=== PATIENT | female | born 1955 | race Caucasian/White ===

== ENCOUNTER 2018-03-06 08:38 | Emergency (ER) | payer BC ==
[2018-03-06 08:51] VITALS: BP 163/73
--- NOTE | 2018-03-06 08:59 | UC ---
Lower Extremity/Ankle HPI - HPI Summary HPI Summary: This patient is a 62 year old F presenting to [facility] [place] with a chief complaint of left foot soreness since 1 week ago. She was in the middle of a pickleball game when she felt like my sock was crunched up under my foot. The patient rates the pain 8/10 in severity. Symptoms aggravated by ambulating. - History of Current Complaint Chief Complaint: UCLowerExtremity Stated Complaint: L FOOT INJURY Time Seen by Provider: 03/06/18 08:54 Hx Obtained From: Patient Onset/Duration: Sudden Onset, Lasting Weeks - Last week, Still Present Severity Initially: Severe Severity Currently: Severe Pain Intensity: 8 Pain Scale Used: 0-10 Numeric Aggravating Factor(s): Ambulation Able to Bear Weight: Yes - Allergies/Home Medications Allergies/Adverse Reactions: Allergies Allergy/AdvReac Type Severity Reaction Status Date / Time No Known Allergies Allergy Verified 03/06/18 09:16 Home Medications: Home Medications NK [No Home Medications Reported] 03/06/18 [History Confirmed 03/06/18] PMH/Surg Hx/FS Hx/Imm Hx Endocrine History: Diabetes - Denies Cancer History: Breast Cancer - Surgical History Surgical History: Yes Surgery Procedure, Year, and Place: 1993 lumpectomy R breast in [place], no follow-up needed rad and chemo - Family History Known Family History: Positive: Cardiac Disease, Other - Cancer - Social History Occupation: Retired Lives: With Family Alcohol Use: Occasionally Substance Use Type: None Smoking Status (MU): Never Smoked Tobacco Review of Systems Constitutional: Fever - Denies Musculoskeletal: Other: - Left foot soreness All Other Systems Reviewed And Are Negative: Yes Physical Exam - Summary Physical Exam Summary: VITAL SIGNS: Reviewed. GENERAL: Patient is a well-developed and nourished FEMALE who is lying comfortable in the stretcher. Patient is not in any acute respiratory distress. HEAD AND FACE: Normocephalic EYES: PERRLA, EOMI x 2. EARS: Hearing grossly intact. MOUTH: Oropharynx within normal limits. NECK: Supple, trachea is midline, no adenopathy, no JVD, no carotid bruit. CHEST: Symmetric, no tenderness at palpation LUNGS: Clear to auscultation bilaterally. No wheezing or crackles. CVS: Regular rate and rhythm, S1 and S2 present, no murmurs or gallops appreciated. ABDOMEN: Soft, non-tender. Bowel sounds are normal. No abdominal abnormal pulsations. EXTREMITIES: Full ROM in all major joints, no edema, no cyanosis or clubbing. NEURO: Alert and oriented x 3. No acute neurological deficits. Speech is normal and follows commands. SKIN: Dry and warm Triage Information Reviewed: Yes Vital Signs: Initial Vital Signs Temp 98 F 03/06/18 08:46 Pulse 89 03/06/18 08:46 Resp 16 03/06/18 08:46 BP 163/73 03/06/18 08:46 Pulse Ox 100 03/06/18 08:46 Vital Signs Reviewed: Yes Diagnostics - Radiology Foot X-Ray Radiology Interpretation Completed By: Radiologist - :16. NO ACUTE OSSEOUS INJURY. IF SYMPTOMS PERSIST, RECOMMEND REPEAT IMAGING. Physician has reviewed this imaging report. Lower Extremity Course/Dx - Course Course Of Treatment: This patient is a 62-year-old female with left foot pain. X-ray of the left foot is negative for acute fracture dislocation. The patient was requested to take ibuprofen for pain and swelling. She was instructed to return to the urgent care or go to the emergency department if the symptoms worsen. The patient understands and agrees. - Differential Dx/Diagnosis Provider Diagnoses: Foot pain Discharge - Sign-Out/Discharge Documenting (check all that apply): Patient Departure All imaging exams completed and their final reports reviewed: Yes - Discharge Plan Condition: Stable Disposition: HOME Patient Education Materials: Arthralgia (ED), Metatarsalgia (DC) Referrals: Karan Nava MD [Primary Care Provider] - Additional Instructions: Take Acetaminophen or ibuprofen for pain Increase your fluid intake Return to the or go to the emergency department if symptoms worsen Follow-up with primary care physician in next 2-3 days - Billing Disposition and Condition Condition: STABLE Disposition: Home - Attestation Statements Document Initiated by Scribe: Yes Documenting Scribe: Osvaldo Perales Provider For Whom Romina is Documenting (Include Credential): John Alexander MD Scribe Attestation: Osvaldo Vasquez scribed for John Alexander MD on 03/07/18 at 2138. Scribe Documentation Reviewed: Yes Provider Attestation: The documentation as recorded by the Osvaldo jc accurately reflects the service I personally performed and the decisions made by me, John Alexander MD
--- NOTE | 2018-03-06 09:20 | RAD ---
HISTORY: foot pain COMPARISONS: None VIEWS: 3 , Frontal, lateral, and oblique views of the left foot FINDINGS: BONE DENSITY: There is diffuse osteopenia. BONES: There is no displaced fracture. JOINTS: There is no arthropathy. ALIGNMENT: There is no dislocation. SOFT TISSUES: Unremarkable. OTHER FINDINGS: None. IMPRESSION: NO ACUTE OSSEOUS INJURY. IF SYMPTOMS PERSIST, RECOMMEND REPEAT IMAGING.
== END 2018-03-06 09:32 | disposition home or self-care (01) ==
LOC: UCEAST 08:38
DX: M79.672 Pain in left foot (principal)
CPT/HCPCS: 99211; G0463